=== PATIENT | male | born 1955 | race African-American/Black ===

== ENCOUNTER 2019-05-01 11:29 | Emergency (ER) | payer SELFPAY ==
[~2019-05-01] VITALS: Ht 185.4 cm; Wt 90.4 kg
[2019-05-01 11:33] VITALS: BP 149/73
--- NOTE | 2019-05-01 11:39 | NUR ---
PT AMBULATED TO ER BED 3
--- NOTE | 2019-05-01 11:45 | NUR ---
64M C/O ERYTHMATOUS RASH FROM LUQ WRAPING AROUND TO LT BACK. PT REPORTS ITCHY PAIN WITH MOVEMENT AND TENDER TO TOUCH. NO FEVER. BEDRAIL UP X1, BED LOCKED AND LOW. ERMD TO EVAL PATIENT. MEDHX:HTN RX:DENIES
--- NOTE | 2019-05-01 11:50 | NUR ---
DR. ANAYA BEDSIDE EVALUATING PT
[2019-05-01 12:22] VITALS: BP 138/79
--- NOTE | 2019-05-01 12:22 | NUR ---
Patient discharged with v/s stable. Written and verbal after care instructions given and explained. Patient alert, oriented and verbalized understanding of instructions. Ambulatory with steady gait. All questions addressed prior to discharge. ID band removed. Patient advised to follow up with PMD. Rx of VALACYCLOVIR HYDROCHLORIDE given. Patient educated on indication of medication including possible reaction and side effects. Opportunity to ask questions provided and answered.
== END 2019-05-01 12:22 | disposition home or self-care (01) ==
LOC: MED 11:29
DX: B02.9 Zoster without complications (principal); I10 Essential (primary) hypertension
CPT/HCPCS: 99283